=== PATIENT | female | born 1980 | race American Indian/Alaskan Native ===

== ENCOUNTER 2019-02-11 01:00 | Observation (INO) | payer MEDICAID ==
[2019-02-11 01:14] VITALS: BMI 35.5
--- NOTE | 2019-02-11 01:27 | ED PDOC ---
Arrival/HPI - General Chief Complaint: GI Problem Time Seen by Provider: 02/11/19 01:04 Historian: Patient - History of Present Illness Narrative History of Present Illness (Text): 02/11/19 01:24 Loren Feliciano is a 38 year old female, whose past medical history includes HIV and asthma, who presents to the ED brought in by EMS for vomiting. Patient states she has been experiencing persistent nausea with recurrent episodes of vomiting followed with chest discomfort. Patient notes she ate sausage and had 1 Naproxen earlier this evening. Patient actively vomiting in ED. Patient reports she was recently seen [place] [facility] [place] with full evaluation and kept overnight for observation. Patient denies any abdominal pain ,fever, chills, shortness of breath, urinary symptoms, back pain, neck pain, headache, dizziness, or any other complaints. Time/Duration: 1-3 hours Symptom Onset: Gradual Symptom Course: Unchanged Activities at Onset: Light Context: Home Past Medical History - Provider Review Nursing Documentation Reviewed: Yes - Cardiac Hx Cardiac Disorders: No - Pulmonary Hx Respiratory Disorders: Yes Hx Asthma: Yes - Neurological Hx Neurological Disorder: No - HEENT Hx HEENT Disorder: No - Renal Hx Renal Disorder: No - Endocrine/Metabolic Hx Endocrine Disorders: No - Hematological/Oncological Hx Blood Disorders: Yes - Integumentary Hx Dermatological Disorder: No - Musculoskeletal/Rheumatological Hx Musculoskeletal Disorders: No - Gastrointestinal Hx Gastrointestinal Disorders: No - Genitourinary/Gynecological Hx Genitourinary Disorders: No - Psychiatric Hx Psychophysiologic Disorder: No Hx Substance Use: Yes - Surgical History Hx Section: Yes (x3) Other/Comment: ectopic , 2 induced abortions Family/Social History - Physician Review Nursing Documentation Reviewed: Yes Family/Social History: Unknown Family HX Smoking Status: Light Smoker < 10 Cigarettes Daily Hx Alcohol Use: No Hx Substance Use: Yes Substance used: Marijuana Allergies/Home Meds Allergies/Adverse Reactions: Allergies No Known Allergies Allergy (Verified 02/11/19 01:20) Home Medications: Home Meds Medication Instructions Recorded Confirmed Albuterol 0.083% [Albuterol 3 ml IH PRN PRN 02/11/19 02/11/19 Sulfate 3 Ml] Albuterol HFA [Ventolin HFA 90 2 puff IH PRN PRN 02/11/19 02/11/19 mcg/actuation (8 g)] Naproxen [Naprosyn] 500 mg PO BID 02/11/19 02/11/19 Review of Systems - Physician Review All systems were reviewed & negative as marked: Yes - Review of Systems Constitutional: Normal. absent: Fevers Eyes: Normal ENT: Normal Respiratory: Normal. absent: SOB, Cough Cardiovascular: Chest Pain Gastrointestinal: Nausea, Vomiting Genitourinary Female: Normal. absent: Dysuria, Frequency, Hematuria, Urine Output Changes Musculoskeletal: Normal. absent: Back Pain, Neck Pain Skin: Normal. absent: Rash Neurological: Normal. absent: Headache, Dizziness Endocrine: Normal Hemo/Lymphatic: Normal Psychiatric: Normal Physical Exam Vital Signs Reviewed: Yes Vital Signs Temp Pulse Resp BP Pulse Ox 02/11/19 01:13 98.1 F 109 H 18 127/86 98 Temperature: Afebrile Blood Pressure: Normal Pulse: Regular Respiratory Rate: Normal Appearance: Positive for: Well-Appearing, Non-Toxic, Comfortable Pain Distress: None Mental Status: Positive for: Alert and Oriented X 3 - Systems Exam Head: Present: Atraumatic, Normocephalic Pupils: Present: PERRL Extroacular Muscles: Present: EOMI Conjunctiva: Present: Normal Mouth: Present: Moist Mucous Membranes Neck: Present: Normal Range of Motion Respiratory/Chest: Present: Clear to Auscultation, Good Air Exchange. No: Respiratory Distress, Accessory Muscle Use Cardiovascular: Present: Regular Rate and Rhythm, Normal S1, S2. No: Murmurs Abdomen: No: Tenderness, Distention, Peritoneal Signs Back: Present: Normal Inspection Upper Extremity: Present: Normal Inspection. No: Cyanosis, Edema Lower Extremity: Present: Normal Inspection. No: Edema Neurological: Present: GCS=15, CN II-XII Intact, Speech Normal Skin: Present: Warm, Dry, Normal Color. No: Rashes Psychiatric: Present: Alert, Oriented x 3, Normal Insight, Normal Concentration Medical Decision Making ED Course and Treatment: 02/11/19 01:25 Impression: 38 year old female complaining of chest pain, nausea and vomiting. Plan: -- EKG -- Chest X-ray -- XR Abdomen -- Labs, cardiac enzymes -- IV fluids -- Zofran -- Pepcid -- Reassess and disposition Prior Visits: Notes and results from previous visits were reviewed. Progress Notes: Reviewed EKG, sinus tachycardia at 113 bpm[address] Non-specific ST/T wave changes. 02/11/19 04:51 Reviewed radiology, Chest X-ray shows no acute processes. XR Abdomen showed no acute processes. 02/11/19 04:[address] Price, who is aware and agrees with plan. Accepts pt in to hospitalist service. Pt will go to [facility] observation for intractable vomiting. vice president medical affairs notified. - Lab Interpretations I have reviewed the lab results: Yes - RAD Interpretation Indian Trader: ED Physician - EKG Interpretation Interpreted by ED Physician: Yes Type: 12 lead EKG - Scribe Statement The provider has reviewed the documentation as recorded by the [place] Provider Scribe Attestation: All medical record entries made by the Scribe were at my direction and personally dictated by me. I have reviewed the chart and agree that the record accurately reflects my personal performance of the history, physical exam, medical decision making, and the department course for this patient. I have also personally directed, reviewed, and agree with the discharge instructions and disposition. Disposition/Present on Arrival - Present on Arrival Any Indicators Present on Arrival: No History of DVT/PE: No History of Uncontrolled Diabetes: No Urinary Catheter: No History of Decub. Ulcer: No History Surgical Site Infection Following: None - Disposition Have Diagnosis and Disposition been Completed?: Yes Diagnosis: Intractable vomiting Disposition: HOSPITALIZED Disposition Time: 04:57 Patient Plan: Observation Condition: STABLE Referrals: Priya Perez, RN [Primary Care Provider] - Follow up with primary Forms: [employer] (Lithuanian)
[2019-02-11] MEDS ORDERED: Sodium Chloride 0.9% 1,000 ML IV SCH (01:30)
[2019-02-11 01:52] LABS: HEMOGLOBIN 14.1 g/dL (12.0-16.0); MEAN CELL VOLUME 92.3 fl (80.0-105.0); MEAN CORPUSCULAR HGB CONC 33.6 g/dl (31.0-37.0); MEAN PLATELET VOLUME 10.5 fl (7.0-11.0); RBC 4.55 10^6/uL (3.5-6.1); RED CELL DISTRIBUTION WIDTH 14.3 % (11.5-14.5); WHITE BLOOD COUNT 5.2 10^3/uL (4.5-11.0)
[2019-02-11 01:54] LABS: ALB/GLOB RATIO 0.8 (1.1-1.8); ALBUMIN 3.5 g/dL (3.0-4.8); BLOOD UREA NITROGEN 24 mg/dL (7-21); CALCIUM 8.5 mg/dL (8.4-10.5); GFR NON-AFRICAN AMERICAN 56
[2019-02-11 01:55] LABS: ALT/SGPT 13 U/L (7-56); AST/SGOT 22 U/L (14-36)
[2019-02-11 02:07] LABS: TROPONIN I < 0.01 ng/mL
[2019-02-11 02:23] LABS: INR 0.91; PARTIAL THROMBOPLASTIN TIME 23.9 Seconds (26.9-38.3); PROTHROMBIN TIME 10.1 SECONDS (9.4-12.5)
--- NOTE | 2019-02-11 05:03 | CP.PCM.HP ---
<Jaron Stone - Last Filed: 02/11/19 06:17> History of Present Illness - History of Present Illness History of Present Illness: Jaron Stone, PGY1 for Dr. rPice cc: "vomiting after eating sausage, dizziness, neck pain, chest pain, shortness of breath" Patient is a 38 year old female, whose past medical history includes HIV (not on meds) and asthma, who presents to the ED brought in by EMS for various complaints including dizziness, neck pain, chest pain, shortness of breath, and vomiting after eating a hot sausage. She says [place] [facility] [place] and was discharged. Chest pain is right sided and worse with palpation. Since then, she has been having various complaints like dizziness and shortness of breath. She also ate a hot sausage recently and had a vomiting e pisode. Vomit is described as non-bilious and non-bloody. She admits to active marijuana use. She currently denies fever, chills, abdominal pain, urinary/bowel changes. [place] [facility] [place] full 12 point ROS was conducted and unremarkable except as stated above. PMHx: HIV (not on meds), Asthma PSHx: c-sections x3, ectopic , abortions x2 Meds: albuterol prn, naproxen 500mg BID Allergies: NKDA SocialHx: smokes cigarettes (7 cigarettes a day). Admits to marijuana use. Denies EtOH use. FamHx: grandma had DM. Present on Admission - Present on Admission Any Indicators Present on Admission: No Review of Systems - Review of Systems All systems: reviewed and no additional remarkable complaints except (as per HPI) Past Patient History - Past Social History Smoking Status: Light Smoker < 10 Cigarettes Daily - CARDIAC Hx Cardiac Disorders: No - PULMONARY Hx Respiratory Disorders: Yes Hx Asthma: Yes - NEUROLOGICAL Hx Neurological Disorder: No - HEENT Hx HEENT Problems: No - RENAL Hx Chronic Kidney Disease: No - ENDOCRINE/METABOLIC Hx Endocrine Disorders: No - HEMATOLOGICAL/ONCOLOGICAL Hx Blood Disorders: Yes - INTEGUMENTARY Hx Dermatological Problems: No - MUSCULOSKELETAL/RHEUMATOLOGICAL Hx Musculoskeletal Disorders: No - GASTROINTESTINAL Hx Gastrointestinal Disorders: No - GENITOURINARY/GYNECOLOGICAL Hx Genitourinary Disorders: No - PSYCHIATRIC Hx Psychophysiologic Disorder: No Hx Substance Use: Yes - SURGICAL HISTORY Hx Section: Yes (x3) Other/Comment: ectopic , 2 induced abortions Meds Allergies/Adverse Reactions: Allergies Allergy/AdvReac Type Severity Reaction Status Date / Time No Known Allergies Allergy Verified 02/11/19 01:20 Physical Exam - Constitutional Appears: No Acute Distress - Head Exam Head Exam: ATRAUMATIC, NORMAL INSPECTION, NORMOCEPHALIC - Eye Exam Eye Exam: EOMI, Normal appearance - ENT Exam ENT Exam: Mucous Membranes Moist - Respiratory Exam Respiratory Exam: Clear to Auscultation Bilateral. absent: Chest Wall Tenderness, Rales, Rhonchi, Wheezes - Cardiovascular Exam Cardiovascular Exam: REGULAR RHYTHM, RRR, +S1, +S2 Additional comments: Reproducible chest pain on right chest wall. - GI/Abdominal Exam GI & Abdominal Exam: Normal Bowel Sounds, Soft. absent: Firm, Guarding, Rebound, Rigid, Tenderness - Extremities Exam Extremities exam: Positive for: normal capillary refill, normal inspection, pedal pulses present - Back Exam Back exam: NORMAL INSPECTION - Neurological Exam Neurological exam: Alert, CN II-XII Intact, Oriented x3, Reflexes Normal - Psychiatric Exam Psychiatric exam: Normal Affect, Normal Mood - Skin Skin Exam: Dry, Intact, Normal Color, Warm Results - Vital Signs Recent Vital Signs: Last Vital Signs Temp 98.1 F 02/11/19 01:13 Pulse 98 H 02/11/19 03:36 Resp 14 02/11/19 03:36 BP 128/81 02/11/19 03:36 Pulse Ox 96 02/11/19 03:36 - Labs Result Diagrams: 02/11/19 01:35 02/11/19 01:35 Labs: Laboratory Results - last 24 hr 02/11/19 02/11/19 02/11/19 01:35 01:35 01:56 WBC 5.2 RBC 4.55 Hgb 14.1 Hct 42.0 MCV 92.3 MCH 31.0 MCHC 33.6 RDW 14.3 Plt Count 180 MPV 10.5 PT 10.1 INR 0.91 APTT 23.9 L Sodium 135 Potassium 3.7 Chloride 110 H Carbon Dioxide 19 L Anion Gap 10 BUN 24 H Creatinine 1.1 Est GFR ( Amer) > 60 Est GFR (Non-Af Amer) 56 Random Glucose 101 Calcium 8.5 Total Bilirubin 0.7 AST 22 ALT 13 Alkaline Phosphatase 86 Lactate Dehydrogenase 468 Total Creatine Kinase 55 Troponin I < 0.01 Total Protein 7.6 Albumin 3.5 Globulin 4.1 Albumin/Globulin Ratio 0.8 L Assessment & Plan - Assessment and Plan (Free Text) Assessment: Patient is a 38 year old female, whose past medical history includes HIV (not on meds) and asthma, who presents to the ED brought in by EMS for various complaints including dizziness, neck pain, chest pain, shortness of breath, and vomiting after eating a hot sausage. Plan: Intractable Nausea and Vomiting 2/2 Marijuana Use vs PUD/Gastritis - Reglan 5mg IVP q6 prn - NPO - IVF NS @ 100 cc/hr - PTX 40mg daily - CXR: negative - Abdominal XR: no acute changes - Counseled on marijuana cessation Atypical chest pain and neck pain - trop neg x1; will obtain another trop - lidocaine patch on neck - morphine 2mg IVP q6 prn for pain control - EKG: sinus tachy at [address]/T wave changes. HIV - Not on HIV meds Asthma - Duonebs prn for sob ppx: - scd - ptx Diet: NPO Dispo: admit patient to med/surg. Case was discussed and reviewed with Attending Physician, Dr. Price <Kwan Price - Last Filed: 02/11/19 19:27> Results - Vital Signs Recent Vital Signs: Last Vital Signs Temp 97.9 F 02/11/19 14:00 Pulse 82 02/11/19 14:00 Resp 20 02/11/19 14:00 BP 115/72 02/11/19 14:00 Pulse Ox 99 02/11/19 14:00 - Labs Result Diagrams: 02/11/19 01:35 02/11/19 01:35 Labs: Laboratory Results - last 24 hr 02/11/19 02/11/19 02/11/19 01:35 01:35 01:35 WBC 5.2 RBC 4.55 Hgb 14.1 Hct 42.0 MCV 92.3 MCH 31.0 MCHC 33.6 RDW 14.3 Plt Count 180 MPV 10.5 PT INR APTT Sodium 135 Potassium 3.7 Chloride 110 H Carbon Dioxide 19 L Anion Gap 10 BUN 24 H Creatinine 1.1 Est GFR ( Amer) > 60 Est GFR (Non-Af Amer) 56 Random Glucose 101 Hemoglobin A1c Calcium 8.5 Total Bilirubin 0.7 AST 22 ALT 13 Alkaline Phosphatase 86 Lactate Dehydrogenase 468 Total Creatine Kinase 55 Troponin I < 0.01 Total Protein 7.6 Albumin 3.5 Globulin 4.1 Albumin/Globulin Ratio 0.8 L TSH 3rd Generation 2.85 Urine Opiates Screen Urine Methadone Screen Ur Barbiturates Screen Ur Phencyclidine Scrn Ur Amphetamines Screen U Benzodiazepines Scrn U Oth Cocaine Metabols U Cannabinoids Screen Alcohol, Quantitative < 10 Hepatitis A IgM Ab Hep Bs Antigen Hep B Core IgM Ab Hepatitis C Antibody HIV 1&2 Antibody Screen 02/11/19 02/11/19 02/11/19 01:56 05:38 06:08 WBC RBC Hgb Hct MCV MCH MCHC RDW Plt Count MPV PT 10.1 INR 0.91 APTT 23.9 L Sodium Potassium Chloride Carbon Dioxide Anion Gap BUN Creatinine Est GFR ( Amer) Est GFR (Non-Af Amer) Random Glucose Hemoglobin A1c Calcium Total Bilirubin AST ALT Alkaline Phosphatase Lactate Dehydrogenase Total Creatine Kinase Troponin I < 0.01 Total Protein Albumin Globulin Albumin/Globulin Ratio TSH 3rd Generation Urine Opiates Screen Negative Urine Methadone Screen Negative Ur Barbiturates Screen Negative Ur Phencyclidine Scrn Negative Ur Amphetamines Screen Negative U Benzodiazepines Scrn Negative U Oth Cocaine Metabols Negative U Cannabinoids Screen Positive H Alcohol, Quantitative Hepatitis A IgM Ab Hep Bs Antigen Hep B Core IgM Ab Hepatitis C Antibody HIV 1&2 Antibody Screen 02/11/19 02/11/19 02/11/19 06:08 11:40 11:40 WBC RBC Hgb Hct MCV MCH MCHC RDW Plt Count MPV PT INR APTT Sodium Potassium Chloride Carbon Dioxide Anion Gap BUN Creatinine Est GFR ( Amer) Est GFR (Non-Af Amer) Random Glucose Hemoglobin A1c 5.6 Calcium Total Bilirubin AST ALT Alkaline Phosphatase Lactate Dehydrogenase Total Creatine Kinase Troponin I Total Protein Albumin Globulin Albumin/Globulin Ratio TSH 3rd Generation Urine Opiates Screen Urine Methadone Screen Ur Barbiturates Screen Ur Phencyclidine Scrn Ur Amphetamines Screen U Benzodiazepines Scrn U Oth Cocaine Metabols U Cannabinoids Screen Alcohol, Quantitative Hepatitis A IgM Ab Negative Hep Bs Antigen Negative Hep B Core IgM Ab Negative Hepatitis C Antibody Negative HIV 1&2 Antibody Screen Reactive Attending/Attestation - Attestation I have personally seen and examined this patient.: Yes I have fully participated in the care of the patient.: Yes I have reviewed all pertinent clinical information: Yes Notes (Text): 02/11/19 19:27 Seen and examined. discussed with resident. A&P as above.
[2019-02-11] MEDS ORDERED: Morphine 2 mg/ml ISec IVP PRN (05:43)
[2019-02-11] MEDS ORDERED: Pantoprazole 40 mg EC Tab PO SCH (06:00)
[2019-02-11] MEDS ORDERED: Albuterol-Ipratrop 3 mg / 0.5 (3 ml) UD IH PRN (06:27)
[2019-02-11 06:41] LABS: BARBITURATES, UR NEGATIVE (NEGATIVE); BENZODIAZEPINES, UR NEGATIVE (NEGATIVE); OPIATES, UR NEGATIVE (NEGATIVE); PHENCYCLIDINE, UR NEGATIVE (NEGATIVE)
--- NOTE | 2019-02-11 08:47 | RAD ---
Date of service: 02/11/2019 PROCEDURE: CHEST RADIOGRAPH, 1 VIEW HISTORY: chest pain COMPARISON: None available. FINDINGS: LUNGS: Clear. PLEURA: No pneumothorax or pleural fluid seen. CARDIOVASCULAR: No aortic atherosclerotic calcification present. Normal. OSSEOUS STRUCTURES: No significant abnormalities. VISUALIZED UPPER ABDOMEN: Normal. OTHER FINDINGS: None. IMPRESSION: No active disease.
--- NOTE | 2019-02-11 08:48 | RAD ---
Date of service: 02/11/2019 HISTORY: vomiting COMPARISON: None available. TECHNIQUE: Two view obtained. FINDINGS: BOWEL: Normal. No obstruction. No free air. BONES: Normal. OTHER FINDINGS: None. IMPRESSION: No active disease.
[2019-02-11] MEDS ORDERED: Albuterol HFA 90 mcg/actuation (8 g) IH PRN (09:19)
[2019-02-11] MEDS ORDERED: Enoxaparin 30 mg Syringe SC SCH (10:00)
[2019-02-11] MEDS ORDERED: Lidocaine 5% Patch TD SCH (10:00)
[2019-02-11] MEDS ORDERED: Enoxaparin 40 mg Syringe SC SCH (11:23)
[2019-02-11 14:40] VITALS: BP 115/72; PULSE 82; RESP 20; TEMP 97.9; O2SAT 99
--- NOTE | 2019-02-11 15:12 | CP.PCM.DIS ---
<Guanako Daniel - Last Filed: 02/11/19 15:16> Provider - Provider Date of Admission: 02/11/19 04:54 Attending physician: Macie Kline MD Primary care physician: Priya Perez RN Time Spent in preparation of Discharge (in minutes): 35 Hospital Course - Lab Results Lab Results: Most Recent Lab Values WBC 5.2 10^3/uL (4.5-11.0) 02/11/19 01:35 RBC 4.55 10^6/uL (3.5-6.1) 02/11/19 01:35 Hgb 14.1 g/dL (12.0-16.0) 02/11/19 01:35 Hct 42.0 % (36.0-48.0) 02/11/19 01:35 MCV 92.3 fl (80.0-105.0) 02/11/19 01:35 MCH 31.0 pg (25.0-35.0) 02/11/19 01:35 MCHC 33.6 g/dl (31.0-37.0) 02/11/19 01:35 RDW 14.3 % (11.5-14.5) 02/11/19 01:35 Plt Count 180 10^3/uL (120.0-450.0) 02/11/19 01:35 MPV 10.5 fl (7.0-11.0) 02/11/19 01:35 PT 10.1 SECONDS (9.4-12.5) 02/11/19 01:56 INR 0.91 02/11/19 01:56 APTT 23.9 Seconds (26.9-38.3) L 02/11/19 01:56 Sodium 135 mmol/L (132-148) 02/11/19 01:35 Potassium 3.7 mmol/L (3.6-5.0) 02/11/19 01:35 Chloride 110 mmol/L (98-107) H 02/11/19 01:35 Carbon Dioxide 19 mmol/L (21-33) L 02/11/19 01:35 Anion Gap 10 (10-20) 02/11/19 01:35 BUN 24 mg/dL (7-21) H 02/11/19 01:35 Creatinine 1.1 mg/dl (0.7-1.2) 02/11/19 01:35 Est GFR ( Amer) > 60 02/11/19 01:35 Est GFR (Non-Af Amer) 56 02/11/19 01:35 Random Glucose 101 mg/dL (70-110) 02/11/19 01:35 Hemoglobin A1c 5.6 % (4.2-6.5) 02/11/19 06:08 Calcium 8.5 mg/dL (8.4-10.5) 02/11/19 01:35 Total Bilirubin 0.7 mg/dL (0.2-1.3) 02/11/19 01:35 AST 22 U/L (14-36) 02/11/19 01:35 ALT 13 U/L (7-56) 02/11/19 01:35 Alkaline Phosphatase 86 U/L (38-126) 02/11/19 01:35 Lactate Dehydrogenase 468 U/L (333-699) 02/11/19 01:35 Total Creatine Kinase 55 U/L (35-230) 02/11/19 01:35 Troponin I < 0.01 ng/mL 02/11/19 06:08 Total Protein 7.6 g/dL (5.8-8.3) 02/11/19 01:35 Albumin 3.5 g/dL (3.0-4.8) 02/11/19 01:35 Globulin 4.1 gm/dL 02/11/19 01:35 Albumin/Globulin Ratio 0.8 (1.1-1.8) L 02/11/19 01:35 TSH 3rd Generation 2.85 mIU/mL (0.46-4.68) 02/11/19 01:35 Urine Opiates Screen Negative (NEGATIVE) 02/11/19 05:38 Urine Methadone Screen Negative (NEGATIVE) 02/11/19 05:38 Ur Barbiturates Screen Negative (NEGATIVE) 02/11/19 05:38 Ur Phencyclidine Scrn Negative (NEGATIVE) 02/11/19 05:38 Ur Amphetamines Screen Negative (NEGATIVE) 02/11/19 05:38 U Benzodiazepines Scrn Negative (NEGATIVE) 02/11/19 05:38 U Oth Cocaine Metabols Negative (NEGATIVE) 02/11/19 05:38 U Cannabinoids Screen Positive (NEGATIVE) H 02/11/19 05:38 Alcohol, Quantitative < 10 mg/dL (0-10) 02/11/19 01:35 - Hospital Course Hospital Course: 38 year old female, whose past medical history includes HIV (not on meds) and asthma presented to the ED with abdominal pain/nausea/vomiting. IVF, reglan, protonix given and patient placed on NPO. Patient reported taking naproxen on an empty stomach for her neck muscle pain as per her PCP. She also admitted to consuming marijuana. She also gets epigastric pain after getting spicy food. UDS was positive for cannabinoids. Patient symptoms were related to cannabinoid consumption and NSAID use, patient was counseled to stop both. Abdominal XR showed no acute changes. Patient c/o chest pain that was worked up before with normal echo results. Her trops were negative, CXR with NAD, EKG sinus tachy with no ST-T wave changes. Patient has asthma, duoneb, pulmicort given. Today, patient was asymptomatic, no nausea/vomiting and was able to tolerate her regular diet with no abdominal pain. She is hemodynamically stable and clinically stabilized for discharge today. Discharge Exam - Head Exam Head Exam: ATRAUMATIC, NORMAL INSPECTION, NORMOCEPHALIC - Eye Exam Eye Exam: EOMI, Normal appearance, PERRL Pupil Exam: NORMAL ACCOMODATION, PERRL - ENT Exam ENT Exam: Mucous Membranes Moist - Neck Exam Neck exam: Normal Inspection - Respiratory Exam Respiratory Exam: Clear to PA & Lateral, NORMAL BREATHING PATTERN - Cardiovascular Exam Cardiovascular Exam: REGULAR RHYTHM, +S1, +S2 - GI/Abdominal Exam GI & Abdominal Exam: Normal Bowel Sounds, Soft - Extremities Exam Extremities exam: normal capillary refill, pedal pulses present - Back Exam Back exam: FULL ROM - Neurological Exam Neurological exam: Alert, CN II-XII Intact, Normal Gait, Oriented x3, Reflexes Normal - Psychiatric Exam Psychiatric exam: Normal Affect, Normal Mood - Skin Skin Exam: Dry, Intact, Normal Color, Warm Discharge Plan - Follow Up Plan Condition: STABLE Disposition: HOME/ ROUTINE Instructions: Abdominal X-ray, Smoking: Not Just Harmful to Your Lungs and Heart, Nausea and Vomiting, Adult (DC) Additional Instructions: Please follow up with Dr. Castano or Sanchez in 3-5 days Resume your Ventolin Do not take Naprosyn on empty stomach, take with food in limited amount. Use alternative methods for pain control such as massage, patches. It's advise that you limit or stop taking the marijuana to avoid stomach upset. In addition, please stop smoking cigarettes. Please return if the symptoms returns or call 911 Referrals: Karyna Bradford FNP- [Non-Staff] - <Macie Kline - Last Filed: 02/12/19 14:03> Provider - Provider Date of Admission: 02/11/19 04:54 Attending physician: Macie Kline MD Primary care physician: Priya Perez RN Hospital Course - Lab Results Lab Results: Most Recent Lab Values WBC 5.2 10^3/uL (4.5-11.0) 02/11/19 01:35 RBC 4.55 10^6/uL (3.5-6.1) 02/11/19 01:35 Hgb 14.1 g/dL (12.0-16.0) 02/11/19 01:35 Hct 42.0 % (36.0-48.0) 02/11/19 01:35 MCV 92.3 fl (80.0-105.0) 02/11/19 01:35 MCH 31.0 pg (25.0-35.0) 02/11/19 01:35 MCHC 33.6 g/dl (31.0-37.0) 02/11/19 01:35 RDW 14.3 % (11.5-14.5) 02/11/19 01:35 Plt Count 180 10^3/uL (120.0-450.0) 02/11/19 01:35 MPV 10.5 fl (7.0-11.0) 02/11/19 01:35 PT 10.1 SECONDS (9.4-12.5) 02/11/19 01:56 INR 0.91 02/11/19 01:56 APTT 23.9 Seconds (26.9-38.3) L 02/11/19 01:56 Sodium 135 mmol/L (132-148) 02/11/19 01:35 Potassium 3.7 mmol/L (3.6-5.0) 02/11/19 01:35 Chloride 110 mmol/L (98-107) H 02/11/19 01:35 Carbon Dioxide 19 mmol/L (21-33) L 02/11/19 01:35 Anion Gap 10 (10-20) 02/11/19 01:35 BUN 24 mg/dL (7-21) H 02/11/19 01:35 Creatinine 1.1 mg/dl (0.7-1.2) 02/11/19 01:35 Est GFR ( Amer) > 60 02/11/19 01:35 Est GFR (Non-Af Amer) 56 02/11/19 01:35 Random Glucose 101 mg/dL (70-110) 02/11/19 01:35 Hemoglobin A1c 5.6 % (4.2-6.5) 02/11/19 06:08 Calcium 8.5 mg/dL (8.4-10.5) 02/11/19 01:35 Total Bilirubin 0.7 mg/dL (0.2-1.3) 02/11/19 01:35 AST 22 U/L (14-36) 02/11/19 01:35 ALT 13 U/L (7-56) 02/11/19 01:35 Alkaline Phosphatase 86 U/L (38-126) 02/11/19 01:35 Lactate Dehydrogenase 468 U/L (333-699) 02/11/19 01:35 Total Creatine Kinase 55 U/L (35-230) 02/11/19 01:35 Troponin I < 0.01 ng/mL 02/11/19 06:08 Total Protein 7.6 g/dL (5.8-8.3) 02/11/19 01:35 Albumin 3.5 g/dL (3.0-4.8) 02/11/19 01:35 Globulin 4.1 gm/dL 02/11/19 01:35 Albumin/Globulin Ratio 0.8 (1.1-1.8) L 02/11/19 01:35 TSH 3rd Generation 2.85 mIU/mL (0.46-4.68) 02/11/19 01:35 Urine Opiates Screen Negative (NEGATIVE) 02/11/19 05:38 Urine Methadone Screen Negative (NEGATIVE) 02/11/19 05:38 Ur Barbiturates Screen Negative (NEGATIVE) 02/11/19 05:38 Ur Phencyclidine Scrn Negative (NEGATIVE) 02/11/19 05:38 Ur Amphetamines Screen Negative (NEGATIVE) 02/11/19 05:38 U Benzodiazepines Scrn Negative (NEGATIVE) 02/11/19 05:38 U Oth Cocaine Metabols Negative (NEGATIVE) 02/11/19 05:38 U Cannabinoids Screen Positive (NEGATIVE) H 02/11/19 05:38 Alcohol, Quantitative < 10 mg/dL (0-10) 02/11/19 01:35 Hepatitis A IgM Ab Negative (NEGATIVE) 02/11/19 11:40 Hep Bs Antigen Negative (NEGATIVE) 02/11/19 11:40 Hep B Core IgM Ab Negative (NEGATIVE) 02/11/19 11:40 Hepatitis C Antibody Negative (NEGATIVE) 02/11/19 11:40 HIV 1&2 Antibody Screen Reactive (NEGATIVE) 02/11/19 11:40 Attending/Attestation - Attestation I have personally seen and examined this patient.: Yes I have fully participated in the care of the patient.: Yes I have reviewed all pertinent clinical information, including history, physical exam and plan: Yes Notes (Text): 02/12/19 14:00 Attending note; Patient seen and examined with resident. Patient is alert and awake. Denies any nausea, vomiting. Started on regular diet. Patient is a 38 year old female with past medical history includes HIV (not on meds) and asthma presented to the ED with abdominal pain/nausea/vomiting. 1. Abdominal pain, nausea, vomiting; patient was recently started on Naprosyn for musculoskeletal pain. Recently evaluated by [facility] [place] for chest pain, musculoskeletal pain. Work-up was negative as per patient. Possible NSAID induced gastritis. Advised to stop NSAID. Advised to use local pain patches for musculoskeletal disorder. Started on diet. Tolerating diet well. 2. HIV; currently not on any medication. Patient was treated during her 3 pregnancies. Advised to follow-up with ID as outpatient. 3. Obesity; diet, exercise and weight reduction advised. Upon discharge the patient will follow up with PMD Dr. Robertson.
[2019-02-11 16:58] LABS: HEPATITIS B SURFACE AG Negative (NEGATIVE)
[2019-02-11 17:03] LABS: HEPATITIS A IGM NEGATIVE (NEGATIVE); HEPATITIS B CORE AB NEGATIVE (NEGATIVE)
[2019-02-11 17:15] LABS: HEPATITIS C ANTIBODY NEGATIVE (NEGATIVE)
--- NOTE | 2019-02-11 19:39 | CARD ---
APPROVED REPORT Date of service: 02/11/2019 EKG Measurement Heart [id number] <Conclusion> Sinus tachycardia Otherwise normal ECG
== END 2019-02-11 16:32 | disposition home or self-care (01) ==
LOC: ED 01:00 → ERH 04:54 → 5RSO 07:05
PROVIDERS: ADMIT Internal Medicine; ATTEND Internal Medicine
DX: R11.2 Nausea with vomiting, unspecified (principal); R07.89 Other chest pain; R10.13 Epigastric pain; M54.2 Cervicalgia; J45.909 Unspecified asthma, uncomplicated; Z21 Asymptomatic human immunodeficiency virus [HIV] infection status; R00.0 Tachycardia, unspecified; F12.90 Cannabis use, unspecified, uncomplicated; F17.210 Nicotine dependence, cigarettes, uncomplicated; Z98.891 History of uterine scar from previous surgery; Z83.3 Family history of diabetes mellitus; E66.9 Obesity, unspecified; Z68.35 Body mass index [BMI] 35.0-35.9, adult
CPT/HCPCS: 36415; 71045; 74019; 80053; 80074; 80320; 80324; 80345; 80346; 80349; 80353; 80358; 80361; 81025; 82550; 83036; 83615; 83992; 84443; 84484; 85027; 85610; 85730; 86703; 93005; 94640; 96372; 96374; 96375; 99283; G0378; J1650; J2405; J7030